=== PATIENT | female | born 1960 | race Caucasian/White ===

== ENCOUNTER 2022-07-17 09:44 | Outpatient (CLI) | payer BC, SELFPAY ==
--- NOTE | 2022-07-17 10:15 | CRLHL7_ITS ---
For Patients: As a result of the Century Cures Act, medical imaging exams and procedure reports are released immediately into your electronic medical record. You may view this report before your referring provider. If you have questions, please contact your health care provider. BILATERAL SCREENING MAMMOGRAM WITH COMPUTER-AIDED DETECTION AND TOMOSYNTHESIS TECHNIQUE: CC and MLO views were obtained. These mammographic images have been obtained using full-field digital technique. These mammographic images were interpreted with the benefit of computer-aided detection. Breast Tomosynthesis was used in this interpretation. COMPARISON FILM: No priors available. FINDINGS: There are scattered areas of fibroglandular density IMPRESSION: There is no radiographic evidence for malignancy. ASSESSMENT: BI-RADS Category 1: Negative RECOMMENDATION: Routine screening mammogram in 1 year. A lay language report of this examination will be provided to the patient. Joaquín Anderson M.D. Diagnostic/Musculoskeletal Radiologist [email or web address] Transcribed: 2:19 p.m. PT/Dictated by: Joaquín Anderson MD @ 07/24/2022 12:14:00 PM (Electronically Signed)
== END 2022-07-17 09:45 | disposition home or self-care (01) ==
LOC: MAMMO 09:45
PROVIDERS: PCP Internal Medicine; Visit Provider Internal Medicine
DX: Z12.31 Encounter for screening mammogram for malignant neoplasm of breast (principal)
CPT/HCPCS: 77063; 77067

== ENCOUNTER 2023-07-07 08:30 | Outpatient (RCR) | payer BC, SELFPAY | END 2023-11-04 23:59 | disposition home or self-care (01) | PROVIDERS: PCP Internal Medicine; Visit Provider Student in an Organized Health Care Education/Training Program | DX: M18.11 Unilateral primary osteoarthritis of first carpometacarpal joint, right hand (principal); Z51.89 Encounter for other specified aftercare | CPT/HCPCS: 97035; 97110; 97140; 97165; 97535; L3933; X5282 ==

== ENCOUNTER 2025-06-14 13:43 | Outpatient (CLI) | payer OTHER, SELFPAY | END 2025-06-14 13:44 | disposition home or self-care (01) | LOC: INJ CL 13:46 | PROVIDERS: Visit Provider Family Medicine | DX: M17.11 Unilateral primary osteoarthritis, right knee (principal); M25.561 Pain in right knee | CPT/HCPCS: 64454 ==

== ENCOUNTER 2025-07-12 12:07 | Outpatient (CLI) | payer OTHER, SELFPAY | END 2025-07-12 12:08 | disposition home or self-care (01) | PROVIDERS: Visit Provider Family Medicine | DX: M17.11 Unilateral primary osteoarthritis, right knee (principal); M25.561 Pain in right knee; G89.29 Other chronic pain | CPT/HCPCS: 64624; J0702; J2250; J3010 ==

== ENCOUNTER 2025-10-19 08:27 | Outpatient (CLI) | payer OTHER, SELFPAY | END 2025-10-19 08:28 | disposition home or self-care (01) | LOC: INJ CL 08:27 | PROVIDERS: Visit Provider Nurse Anesthetist, Certified Registered | DX: M17.12 Unilateral primary osteoarthritis, left knee (principal); M25.562 Pain in left knee | CPT/HCPCS: 64454 ==

== ENCOUNTER 2025-11-02 07:53 | Outpatient (CLI) | payer OTHER, SELFPAY | END 2025-11-02 07:54 | disposition home or self-care (01) | LOC: INJ CL 07:53 | PROVIDERS: Visit Provider Nurse Anesthetist, Certified Registered | DX: M17.12 Unilateral primary osteoarthritis, left knee (principal) | CPT/HCPCS: 64624; J0665; J0702; J1885; J2250; J3010 ==

== ENCOUNTER 2025-11-09 08:17 | Outpatient (CLI) | payer OTHER, SELFPAY | END 2025-11-09 08:18 | disposition home or self-care (01) | LOC: INJ CL 08:17 | PROVIDERS: Visit Provider Nurse Anesthetist, Certified Registered | DX: M17.11 Unilateral primary osteoarthritis, right knee (principal) | CPT/HCPCS: 64624; J0665; J0702; J1885; J2250; J3010 ==